=== PATIENT | male | born 1975 | race Caucasian/White ===

== ENCOUNTER 2025-02-27 19:14 | Emergency (ER) | payer OTHER ==
[~2025-02-27] VITALS: Ht 175.3 cm; Wt 105.3 kg
[2025-02-27 19:39] VITALS: TEMP 98.3
[2025-02-27 22:55] VITALS: BP 138/79; PULSE 78; RESP 16; O2SAT 100
[2025-02-28] MEDS: APIXABAN 5 MG TABLET PO ONE (02:32)
== END 2025-02-28 02:45 ==
LOC: EMS 19:14
DX: I82.432 Acute embolism and thrombosis of left popliteal vein (principal); I25.10 Atherosclerotic heart disease of native coronary artery without angina pectoris; Z79.01 Long term (current) use of anticoagulants; Z86.718 Personal history of other venous thrombosis and embolism
CPT/HCPCS: 93971; 99284; Z7502